=== PATIENT | male | born 1950 | race Caucasian/White ===

== ENCOUNTER 2022-01-20 08:22 | Day surgery (SDC) | payer MEDICARE, OTHER ==
[~2022-01-20] VITALS: Ht 165 cm; Wt 94.0 kg
[~2022-01-20 08:22] MED LIST: ATORVASTATIN CA10 MG PO; COZAAR100 MG PO; IBUPROFEN800 M1 PO; LORAZEPAM 0.5M0.5 MG PO; LUPRON DEPOT22.5 MG SC; NUBEQA300 MG PO; SERTRALINE HCL25 MG PO; ZOLPIDEM TARTRA10 MG PO
--- NOTE | 2022-01-20 13:27 | NUR ---
PT HAD A RTKR THIS DATE. PT HAS A RW. [facility] TO DELIVER A 01/07. PT. REQUESTED HH. PT WILL BE STAYING WITH HIS BROTHER IN [place]. ADDRESS UNKNOWN AT THIS TIME.
--- NOTE | 2022-01-20 16:29 | NUR ---
PT WILL BE GOING TO HIS BROTHER'S HOME IN [place]. PT BROTHER IS KAMLA DOHERTY [phone]. KAMLA'S ADDRESS IS [facility] , [place] [id number]. PT. HAS A RW. [facility] TO DELIVER A 3/1 UPON DISHCARGE. [facility] WILL BE THE .
[2022-01-21 07:03] LABS: BASOPHIL 0.1 % (0-2); EOSINOPHIL 0 % (0-7); HCT 30.5 % (42.0-52.0); HGB 10.2 g/dl (13.2-18.0); LYMPHOCYTE 13.5 % (15-48); MCH 31.2 pg (25.0-31.0); MCHC 33.4 g/dL (32.0-36.0); MCV 93.3 fL (78.0-100.0); MONOCYTE 5.8 % (0-12); MPV 9.1 fL (6.0-9.5); NEUTROPHIL 80.1 % (41-80); NRBC 0; PLT 250 K/uL (150-400); RBC 3.27 M/uL (4.70-6.00); RDW 13.1 % (11.5-14.0); WBC 13.7 K/uL (4.0-10.5)
[2022-01-21 07:13] LABS: BUN/CREAT RATIO (CALC) 23.5 RATIO; CREATININE 0.81 mg/dL (0.67-1.17); POTASSIUM 4.6 mmol/L (3.5-5.1)
[2022-01-21] MEDS ORDERED: XARELTO10 MG PO (09:12)
[2022-01-21] MEDS ORDERED: FEOSOL325 MG PO (09:12)
[2022-01-21] MEDS ORDERED: OXYCODONE-ACET1 EAC1 PO (09:12)
== END 2022-01-21 12:30 | disposition home health service (06) ==
LOC: FAS 08:22 → FMS 12:44 → FAS 01-21 12:30
PROVIDERS: Legal Medicine
DX: M17.0 Bilateral primary osteoarthritis of knee (principal); M21.162 Varus deformity, not elsewhere classified, left knee; G89.18 Other acute postprocedural pain; I10 Essential (primary) hypertension; E78.5 Hyperlipidemia, unspecified; G47.30 Sleep apnea, unspecified; F41.9 Anxiety disorder, unspecified; M21.161 Varus deformity, not elsewhere classified, right knee; Z90.79 Acquired absence of other genital organ(s)
CPT/HCPCS: 36415; 73560; 80048; 85025; 86850; 86900; 86901; 94010; 94762; 97162; 97166; 97530-GP; 97535; C1713; C1776; J0171; J0697; J1100; J1170; J1885; J2270; J2370; J2405; J2704; J2795; J3010; J7120